=== PATIENT | female | born 1960 | race American Indian/Alaskan Native ===

== ENCOUNTER 2017-10-20 10:25 | Day surgery (SDC) | payer OTHER ==
[2017-10-12 10:54] VITALS: BMI 25.0
[2017-10-20] MEDS ORDERED: Midazolam 2 MG/2 ML VIAL ONE (11:40)
[2017-10-20] MEDS ORDERED: Propofol 10 mg/ml Inj (20 ML) ONE ×2 (11:40→12:17)
[2017-10-20] MEDS ORDERED: Atropine 0.4 mg/ml Inj (1 mL) ONE (11:54)
[2017-10-20] MEDS ORDERED: Sodium Chloride 0.9% 1,000 ML IV SCH (12:30)
[2017-10-20 13:32] VITALS: BP 105/59; PULSE 60; RESP 19; TEMP 98.1; O2SAT 100
== END 2017-10-20 14:12 | disposition home or self-care (01) ==
LOC: ENDO 10:25
PROVIDERS: ATTEND Internal Medicine
DX: Z12.11 Encounter for screening for malignant neoplasm of colon (principal); D12.3 Benign neoplasm of transverse colon; K63.5 Polyp of colon; K64.8 Other hemorrhoids; Z80.0 Family history of malignant neoplasm of digestive organs; Z86.010 Personal history of colon polyps
CPT/HCPCS: 45380; 88305; J0461; J2250; J2704; J7040